=== PATIENT | female | born 1985 | race Caucasian/White ===

== ENCOUNTER 2017-11-28 02:32 | Outpatient (CLI) | payer BC, SELFPAY ==
--- NOTE | 2017-11-28 09:58 | DI.US_ITS ---
SYMPTOM/DIAGNOSIS: LT SIDED PELVIC PAIN, ? MASS OR TORSION PELVIC ULTRASOUND: Transabdominal and transvaginal examination was performed. The uterus measures 8 cm. long by 3.8 cm. AP by 4.7 cm. transverse. The endometrial stripe is within normal limits at .6 cm. No myometrial mass is present. The right ovary measures 2.8 by 2.2 by 2.5 cm. and contains follicular cysts, the largest measuring 1.8 cm. No suspicious ovarian masses are seen. There is normal blood flow to the right ovary. No evidence of torsion is seen. The left ovary measures 2.6 by 1.4 by 2.2 cm. It contains small follicular cysts. There is normal blood flow. No evidence of torsion. No free pelvic fluid or hydronephrosis is identified. IMPRESSION: Normal pelvic ultrasound.
== END 2017-11-28 02:52 ==
PROVIDERS: PCP Nurse Practitioner Family; Visit Provider Family Medicine
DX: R10.2 Pelvic and perineal pain (principal); R10.32 Left lower quadrant pain; N83.02 Follicular cyst of left ovary
CPT/HCPCS: 76830; 76856

== ENCOUNTER 2018-02-21 16:27 | Outpatient (REF) | payer BC, SELFPAY ==
--- NOTE | 2018-02-21 16:00 | PAPFT_PTH ---
PATIENT: GERRY HERNANDEZ LOC: [facility] U#:[id number] AGE/SX: 32/F ROOM: RE02/21/[address]: MITALI Musa : 1985 BED: DIS: 02/21/2018 SPEC #: [id number] RECD: 02/21/18 17:51 STATUS: LEAHKamila REReza #: [id number] ANA: 02/21/18 16:[address]: Yareli Hammonds DEPT: [facility] Cytology RECD BY: Karly Snider ENTERED: 02/21/18 17:52 SP TYPE: PAPFT CHRISTOPHER DR: Adele Chiu APRN Tissues: 1 - CX/ENDOCX FOR PAP SMEARS Procedures: PAP THIN PREP/[facility] Screening HPV DNA PROBE Comments: [id number]
== END 2018-02-21 16:47 ==
LOC: LBN 16:27
PROVIDERS: PCP Nurse Practitioner Family; Visit Provider Nurse Practitioner Family
DX: Z12.4 Encounter for screening for malignant neoplasm of cervix (principal); Z11.51 Encounter for screening for human papillomavirus (HPV)
CPT/HCPCS: 88142; 87624

== ENCOUNTER 2018-05-10 07:00 | Outpatient (REF) | payer BC, SELFPAY ==
[2018-05-14 15:21] LABS: Chlamydia Result Negative; GC Result Negative; Specimen Description URINE
== END 2018-05-10 07:20 ==
LOC: LBN 07:00
PROVIDERS: PCP Nurse Practitioner Family; Visit Provider Nurse Practitioner Family
DX: Z11.3 Encounter for screening for infections with a predominantly sexual mode of transmission (principal)
CPT/HCPCS: 87491; 87591